=== PATIENT | male | born 1985 | race Caucasian/White ===

== ENCOUNTER → 2025-02-09 08:39 | Outpatient (CLI) | payer OTHER, SELFPAY ==
--- NOTE | 2025-02-09 08:51 | DI.CT.S_ITS ---
PROCEDURE: CT ANKLE LEFT WITHOUT INDICATIONS: pain in left ankle TECHNIQUE: Noncontrast 1-1.5 mm axial sections acquired from above the tibiotalar joint to the bottom of the calcaneus, with coronal and sagittal reformats. COMPARISON: [facility], MR, MR ANKLE LEFT WITHOUT CONTRAST, 11/05/2024, 6:51. Outside Film, CR, XR ANKLE 3+ VIEWS LEFT, 09/24/2024, 21:16. FINDINGS: Image quality: Diagnostic Bones: Patient is status post internal fixation of mid to distal fibular shaft, medial malleolus and distal tibial fibular syndesmosis with surgical screws in place. Significant beam hardening artifacts are noted. There is fracture of the syndesmotic screw at the level of distal tibial medullary space approximately 8 mm from the lateral cortex. Increased radiolucency surrounding the syndesmotic screw consistent with hardware failure. No other hardware loosening or failure is seen. Healed or nearly healed distal fibular shaft fracture is seen. Nearly healed medial malleolus fracture is also noted with greater than 50% bony union. Widened distal tibial fibular syndesmosis measures up to 7 mm in witdh. No acute fracture or dislocation. 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 No suspicious intraosseous lesions. Soft tissues: There is no significant joint effusion or calcified intra-articular loose bodies. No full-thickness ankle tendon rupture. No soft tissue mass or drainable fluid collection. IMPRESSION: 1. Post ORIF changes in medial malleolus, mid to distal fibular shaft and distal tibial fibular syndesmosis are seen with surgical hardware in place. Fractured syndesmotic screw as described above. Widened distal tibial fibular syndesmosis measures up to 7 mm in width. 2. No other hardware loosening or failure. Healed or nearly healed distal fibular shaft fracture and medial malleolus fracture. 3. 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 No acute fracture or dislocation. No suspicious bony lesions. 4. No soft tissue mass or drainable fluid collection. No calcified intra-articular loose bodies. Dictated by: Agusto Patel M.D. on 02/09/2025 at 10:46 Approved by: Agusto Patel M.D. on 02/09/2025 at 11:00
== END ==
PROVIDERS: Referring Provider Student in an Organized Health Care Education/Training Program; Visit Provider Student in an Organized Health Care Education/Training Program
DX: M25.572 Pain in left ankle and joints of left foot (principal); Z98.890 Other specified postprocedural states; M19.072 Primary osteoarthritis, left ankle and foot; Z87.81 Personal history of (healed) traumatic fracture
CPT/HCPCS: 73700